=== PATIENT | female | born 2000 | race Caucasian/White ===

== ENCOUNTER 2023-08-25 22:35 | Emergency (ER) | payer OTHER, SELFPAY ==
[2023-08-25 22:36] VITALS: BP 129/90; PULSE 72; RESP 18; TEMP 36.8; O2SAT 98; BMI 23.2
--- NOTE | 2023-08-25 23:14 | EX.ED.DYSGE1 ---
HPI History of Present Illness Chief Complaint: Numb/Ting Informant: patient Narrative Narrative: Patient is a 22-year-old female denies any significant past medical history presenting with facial numbness, twitching underneath her eye and numbness of her hands and feet. Patient states she was in bed this evening when she started to feel some twitching around her left eyebrow and underneath her left eye. Around 8 PM she then noticed that her entire face was numb. She then felt numb from her knees down to her feet on both sides, her hands to her elbows bilaterally and her hand started to spasm up. She also could not open her mouth all the way. She is never anything like this happen to her before. She denies any other complaints at this time. Denies any vision changes or fever or chills. States that she was not any type of distress when this started. No new medications (denies taking any medications on a daily basis). No other complaints or concerns reported at this time. [facility] Medical History Depression Anxiety Physical exam, pre-employment Contact dermatitis and eczema due to detergents Home Medications ?Medication ?Instructions ?Recorded ?Last Taken ?Type NK 08/25/23 Unknown History Allergy/AdvReac Type Severity Reaction Status Date / Time cephalexin Allergy swelling Verified 08/25/23 22:39 and unable to breath Social History Smoking Status: Current every day smoker tobacco type: e-cigarettes ROS ROS ED Constitutional Constitutional ED: Denies chills, fever(s) or sweats Eyes Eyes: Denies change in vision or diplopia ENT ENT ED: Denies rhinorrhea or sore throat Cardiovascular Cardiovascular: Denies chest pain Respiratory/Chest Respiratory/Chest: Denies cough Gastrointestinal Gastrointestinal: Denies abdominal pain, nausea or vomiting Musculoskeletal Musculoskeletal: Denies arthralgias or myalgias Integumentary Denies rash Neurologic Neurologic: Reports paresthesias and weakness; Denies headache(s) Psychiatric Psychiatric: Denies anxiety or depression EXAM Physical Exam Const Vital Signs: 08/25/23 22:36 08/26/23 00:36 08/26/23 00:46 Temperature 98.3 F 97.8 F 97.8 F Temperature Source Temporal Oral Pulse Rate 72 74 74 Respiratory Rate 18 16 16 Blood Pressure 129/90 H 112/67 112/67 Blood Pressure Mean 103 82 82 Pulse Ox 98 98 98 Oxygen Delivery Method Room Air Room Air Positive well nourished and well developed General Appearance ED: well developed and NAD HEENT HEENT Narrative: Patient will to speak but is not opening her mouth as wide as I suspect she normally does Negative for trauma or tenderness Eyes PERRL and EOMs intact bilaterally Eyes Narrative: Subtle fasciculations noted underneath the right eye Neck supple Chest Wall inspection of chest normal and palpation of chest normal Resp normal respiratory effort and clear to auscultation bilaterally Cardio regular rate, regular rhythm and no murmurs Extremity normal to inspection General Extremety ED: Negative for edema or tenderness General Extremity: Negative for edema Neuro oriented x3, CN's II-XII intact bilaterally and no sensory deficits noted Sensorium / Orientation: alert Motor Exam: strength 5/5 throughout; Negative for general weakness Psych mental status grossly normal Skin no rashes or lesions noted and no wounds MDM MDM MDM Narrative Medical decision making narrative: Patient is evaluated for diffuse paresthesias and what sounds like carpopedal spasm. Her vital signs are normal. She is calm and acting appropriate. Symptoms do seem to be improving.I suspect this is some type of transient electrolyte shift. Patient is placed on nonrebreather without connected oxygen to help her rebreather CO2 and hopefully reverse the symptoms further. Will check electrolytes in the meantime. Patient does not have any infectious symptoms, nuchal rigidity or lateralizing symptoms. Lab work largely normal. No significant electrolyte abnormalities. Patient has improvement of symptoms further while in the emergency room. Suspect this is benign carpopedal spasm. Is given return precautions. Encouraged follow-up with primary care doctor. At this time I feel could be safely discharged home. Patient agreeable to plan of care Lab Data Attestation: I reviewed the patient's lab results. Labs: Laboratory Results - last 24 hr 08/25/23 23:15 WBC 6.9 RBC 4.31 Hgb 12.7 Hct 37.4 MCV 86.8 MCH 29.5 MCHC 34.0 RDW Std Deviation 39.4 RDW Coeff of Kevin 12.2 Plt Count 209 MPV 10.0 Immature Gran % (Auto) 0.300 Neut % (Auto) 43.9 L Lymph % (Auto) 40.5 [place] % (Auto) 10.4 H Eos % (Auto) 4.3 Baso % (Auto) 0.6 Absolute Neuts (auto) 3.0 Absolute Lymphs (auto) 2.80 Nucleated RBC % 0 Sodium 139 Potassium 3.8 Chloride 109 H Carbon Dioxide 25.0 Anion Gap 5 BUN 9 Creatinine 0.51 L Estim Creat Clear Calc 163.35 Est GFR (MDRD) Af Amer 193 Est GFR (MDRD) Non-Af 160 BUN/Creatinine Ratio 17.6 Glucose 93 Calcium 9.0 Total Bilirubin 0.20 AST 11 L ALT 16 Alkaline Phosphatase 66 Total Protein 6.8 Albumin 3.7 Globulin 3.1 Albumin/Globulin Ratio 1.2 TSH 1.73 Discharge Plan Triage Chief Complaint: Numb/Ting ED Provider: Shanna Newton Dx/Rx/DC Orders Clinical Impression: Carpopedal spasm Instructions: ED Hyperventilation Syndrome Prescriptions: No Action NK Primary Care Provider: Letitia Christiansen NP Referrals: Letitia Christiansen NP, [employer] [Primary Care Provider] - Print Language: Kitt[place] Disposition Disposition: Home, Self Care Discharge Date/Time: 08/26/23 00:52
[2023-08-25 23:22] LABS: Basophil# 0.04 X10^3/uL; Basophil% 0.6 % (0-1); Eosinophils% 4.3 % (0-5); Hematocrit 37.4 % (37-47); Hemoglobin 12.7 g/dL (12.0-15.0); Lymphocyte % 40.5 % (19-41); Mean Corpuscular Hgb 29.5 pg (27.0-32.0); Mean Corpuscular Volume 86.8 fL (81-99); Monocyte# 0.72 X10^3/uL; Monocyte% 10.4 % (0-10); NRBC Flagged by Analyzer 0 % (0-5); Neutrophil # 3.03 X10^3/uL (2.7-7.7); Neutrophil % 43.9 % (47-70); Platelet Count 209 K/mm3 (150-450); RBC Distribution Width CV 12.2 % (11.6-14.6); RBC Distribution Width SD 39.4 fl (35.1-43.9); Red Blood Count 4.31 M/mm3 (4.2-5.4); White Blood Count 6.9 K/mm3 (4.4-11.0)
[2023-08-25 23:47] LABS: ALB/GLOB Ratio 1.2 RATIO (0.9-2.4); AST(SGOT) 11 U/L (15-37); Alanine Aminotransfer ALT/SGPT 16 U/L (13-56); Albumin, Serum 3.7 g/dL (3.2-5.0); Alkaline Phosphatase 66 U/L (45-117); Anion Gap 5 (5-15); BUN 9 mg/dL (7-18); BUN/Creat Ratio 17.6 RATIO (10-20); Chloride 109 mmol/L (98-107); Creatinine, Serum 0.51 mg/dL (0.55-1.02); EST Glomerular Filtration Rate 160 mL/min (>60); Est Glom Filt Rate - Afr Amer 193 mL/min (>60); Estimated Creatinine Clearance 163.35 ml/min; Globulin 3.1 g/dL (2.2-4.2); Glucose 93 mg/dL (74-106); Potassium 3.8 mmol/L (3.5-5.1); Protein, Total 6.8 g/dL (6.4-8.2); Sodium Level 139 mmol/L (136-145); Thyroid Stim Hormone (TSH) 1.73 uIU/mL (0.358-3.74)
[2023-08-26 00:36] VITALS: BP 112/67; PULSE 74; RESP 16; TEMP 36.6; O2SAT 98
[2023-08-26 00:46] VITALS: BP 112/67; PULSE 74; RESP 16; TEMP 36.6; O2SAT 98
== END 2023-08-26 00:52 | disposition home or self-care (01) ==
PROVIDERS: Emergency Provider Emergency Medicine; PCP Nurse Practitioner Family; Visit Provider Emergency Medicine
DX: R29.0 Tetany (principal); F17.290 Nicotine dependence, other tobacco product, uncomplicated; R20.2 Paresthesia of skin; R20.0 Anesthesia of skin
CPT/HCPCS: 80053; 84443; 85025; 99283; A4216